=== PATIENT | male | born 1980 | race Two or more races ===

== ENCOUNTER 2021-09-08 11:25 | Emergency (ER) | payer OTHER ==
[~2021-09-08] VITALS: Ht 188 cm; Wt 104.3 kg
== END 2021-09-08 14:14 | disposition home or self-care (01) ==
LOC: ER 11:25
DX: R07.89 Other chest pain (principal); R42 Dizziness and giddiness; Z20.822 Contact with and (suspected) exposure to COVID-19; N20.1 Calculus of ureter